=== PATIENT | female | born 2000 | race Caucasian/White ===

== ENCOUNTER 2021-02-28 17:58 | Emergency (ER) | payer OTHER ==
[~2021-02-28] VITALS: Ht 167.6 cm; Wt 61.4 kg
[2021-02-28 18:21] VITALS: TEMP 98.9
[2021-02-28] MEDS ORDERED: CORTEF5 MG PO (19:11)
[2021-02-28] MEDS ORDERED: EFFEXOR 75M75 MG/TAB PO (19:12)
[2021-02-28 20:00] VITALS: BP 130/65; PULSE 68
== END 2021-02-28 20:05 | disposition home or self-care (01) ==
LOC: COL.ER 17:58
DX: S96.911A Strain of unspecified muscle and tendon at ankle and foot level, right foot, initial encounter (principal); W22.8XXA Striking against or struck by other objects, initial encounter

== ENCOUNTER 2021-09-08 14:41 | Emergency (ER) | payer OTHER ==
[~2021-09-08] VITALS: Ht 170.2 cm; Wt 61.4 kg
[~2021-09-08 14:41] MED LIST: CORTEF5 MG PO; EFFEXOR 75M75 MG/TAB PO
[2021-09-08 14:55] VITALS: TEMP 98.7
[2021-09-08 20:43] VITALS: BP 115/50; PULSE 89
== END 2021-09-08 20:45 | disposition home or self-care (01) ==
LOC: COL.ER 14:41
DX: S96.911A Strain of unspecified muscle and tendon at ankle and foot level, right foot, initial encounter (principal); S20.20XA Contusion of thorax, unspecified, initial encounter; W01.198A Fall on same level from slipping, tripping and stumbling with subsequent striking against other object, initial encounter; Y99.0 Civilian activity done for income or pay
CPT/HCPCS: J1885